=== PATIENT | male | born 1940 | race Caucasian/White ===

== ENCOUNTER 2016-11-20 20:24 | Emergency (ER) | payer MEDICARE, BC ==
[2016-11-20] MEDS ORDERED: ONDANSETRON HCL/PF 2 MG/ML VIAL IV ONE (21:14)
[2016-11-20] MEDS ORDERED: MORPHINE SULFATE 2 MG/ML DISP.SYRIN IV ONE ×2 (21:14→22:20)
--- NOTE | 2016-11-20 21:26 | ERNOTE ---
Abdominal HPI - Narrative Date of Service: 11/20/16 - General Chief Complaint: Abdominal Pain Time Seen by Provider: 11/20/16 20:58 Source: patient, family, RN notes reviewed Exam Limitations: no limitations - Immun/Allergies/Home Medications Immunizatons: IMMUNIZATION HX Immunizations Up to Date Yes History of Influenza Vaccine Yes Hx Pneumococcal Vaccination Yes Allergies/Adverse Reactions: Allergies No Known Allergies Allergy (Unverified 11/20/16 21:35) Home Medications: HOME MEDICATIONS Acetaminophen 325 mg PO Q4H PRN 11/20/16 [Last Taken Unknown] Aspirin 325 mg PO DAILY 11/20/16 [Last Taken Unknown] Atorvastatin Calcium 40 mg PO DAILY 11/20/16 [Last Taken Unknown] Brinzolamide/Brimonidine Tart [Simbrinza 1%-0.2% Eye Drops] 1 drop OP DAILY [Last Taken Unknown] Losartan Potassium [Cozaar] 50 mg PO DAILY 11/20/16 [Last Taken Unknown] Metoprolol Tartrate [Lopressor] 1.5 tab PO BID 11/20/16 [Last Taken Unknown] Nitroglycerin 0.4 mg SL Q5MIN PRN 11/20/16 [Last Taken Unknown] Omeprazole Magnesium [Prilosec Otc] 20 mg PO DAILY 11/20/16 [Last Taken Unknown] - Pain Score Pain Score #1 Pain Score: 8 Abdominal Pain Onset Location: epigastric Pain Radiation: back - History of Present Illness Narrative: 75 y/o male brought to the ED by his for epigastric pain that began at 1600. He denies any nausea, vomiting, constipation or diarrhea. He does report feeling bloated. He describes the pain as burning. Date (Duration): 11/20/16 Time (Timing): 16:00 Timing: constant, getting worse Quality: severe, burning Activities at Onset: none Associated Symptoms: Present: back pain, loss of appetite. Absent: headache, chest pain, neck pain, diaphoresis, fatigue, fever/chills, heartburn, nausea, vomiting, shortness of breath Prior Abdominal Problems: Present: none Prior Treatment: Absent: recently seen Review of Systems - Review of Systems Constitutional: Absent: recent illness, fever, chills EYE: Present: no symptoms reported ENT: Present: no symptoms reported Respiratory: Absent: cough, orthopnea Cardiology: Absent: palpitations, syncope, edema Gastrointestinal/Abdominal: Present: See HPI Genitourinary: Present: no symptoms reported Musculoskeletal: Present: back pain. Absent: neck pain, joint pain Skin: Absent: rash, lesions, lumps Neurological: Absent: headache, dizziness/light-headedness, weakness Endocrine: Present: no symptoms reported Hematologic/Lymphatic: Absent: easy bruising, easy bleeding Psych: Absent: anxiety - Patient's Past Medical History Patient History - Medical: Diabetes Type 2, GERD Patient History - Cardiac/Respiratory: CHF, Hypertension, Hyperlipidemia, CPAP/ BiPAP Home Use, Sleep Apnea Patient History - Cancer: No Hx of Cancer Patient History - Surgical Procedures: Cardiac stent Patient History - Other: None - Social History Living Situations: home Psych History: No pertinent hx Smoking Status: Never smoker Alcohol Use: none Drug Use: none - Immunizations Immunizations Up to Date: Yes Hx Pneumococcal Vaccination: Yes History of Influenza Vaccine: Yes Physical Exam - Physical Exam General Appearance: Present: wd/wn, alert, mild distress, anxious Neck: Present: normal inspection, nontender, supple Respiratory: Present: no respiratory distress, normal breath sounds, no accessory muscle use, chest nontender, lungs clear Cardiovascular/Chest: Present: regular rate, rhythm, no murmur, normal peripheral pulses Gastrointestinal/Abdominal: Present: normal bowel sounds, tenderness - epigastric, distended Back Exam: Present: normal inspection, no vertebral tenderness Extremity Exam: Present: normal inspection, normal range of motion, no edema Neurological Exam: Present: alert, oriented, normal mood/affect, no motor/ sensory deficits Skin Exam: Present: cool/dry, pallor ED Progress - Results and Orders Patient's Lab Results:: I have reviewed the patient's lab results. - Vital Signs Patient's Vital Signs:: I have reviewed the patient's vital signs. Vital Signs: Vital Signs 11/20/16 20:32 Temperature 36.0 C L Pulse Rate 90 Respiratory 18 Rate Blood Pressure 151/102 O2 Sat by Pulse 96 Oximetry - EKG EKG: NSR EKG read: Reviewed by me - Progress/Reassessment Chief Complaint: Abdominal Pain Progress Note-Subjective: 11/20/16 22:23 Some improvement in pain after Morphine 2mg IV, second dose ordered. Awaiting CT results. - Transfer of Care Physician Sign Out: Liseth Mendoza Receiving Physician: Brodale,Steven Pending Results: CT/MRI results Expected Disposition: Admit Departure - Departure Clinical Impression: Epigastric abdominal pain
[2016-11-20] MEDS ORDERED: MORPHINE SULFATE 2 MG/ML DISP.SYRIN ONE ×2 (21:27→22:25)
[2016-11-20] MEDS ORDERED: ONDANSETRON HCL/PF 2 MG/ML VIAL ONE (21:27)
[2016-11-20 21:45] LABS: Hematocrit 48.1 % (42.0-52.0); Hemoglobin 15.9 gm/dL (13.5-18.0); Mean Cell Volume 89.7 fl (78-100); Mean Corpuscular Hemoglobin 29.7 pg (27-31); Mean Corpuscular Hgb Conc 33.1 g/dl (32-36); Mean Platelet Volume 8.4 fl (6.0-9.5); Neutrophil # 7.4 K/mm3 (1.3-6.0); Neutrophil % 86.7 % (42-75.0); Platelet Count 161 K/mm3 (150-450); Red Blood Count 5.36 M/mm3 (4.7-6.0); Red Cell Distribution Width 13.2 % (11.5-14.0); White Blood Count 8.5 K/mm3 (4.0-10.5)
--- OUTSIDE RECORDS SUMMARY | 2016-11-20 21:55 | XMS REPORT | Continuity of Care Document ---
:1940 Author Organization [facility] ([facility]) Address [place] [address] Phone [phone] Care Team Providers Name Role Phone Betsy Ludwig Primary Care Provider [phone] Source Comments This disclosure is being made pursuant to the Care Everywhere program, applicable federal and state laws, and may not contain all informaitonavailable regarding this patient.[facility] ([facility]) Active Allergies and Adverse Reactions No Known Allergies Current Medications Prescription Sig. Disp. Refills Start End Date Status Date aspirin 325 mg EC take 1 Tab by Active tablet mouth daily. omeprazole take 1 Cap by Active (PRILOSEC) 20 mg mouth daily. capsule SUPPLY blood For testing 3 1 Each 0 Active glucose meter times daily. 4 Indications: TYPE 2 DIABETES MELLITUS SIMBRINZA 1-0.2 % Active ophthalmic 5 suspension acetaminophen 325 Take 325 mg by Active mg tablet mouth every 4 hours as needed SUPPLY blood For testing 3 100 Strip Active glucose test times daily. [address] 1 tablet 25 tablet Active (NITROSTAT) 0.4 mg (0.4 mg total) 6 SL tablet under the tongue every 5 minutes as needed for Chest pain. metoPROLol Take 1.5 tablets 280 tablet Active tartrate 50 mg (75 mg total) by 6 tablet mouth 2 times daily. losartan 50 mg Take 1 tablet (50 90 tablet Active tablet mg total) by mouth 6 daily. atorvastatin 40 mg Take 1 tablet (40 90 tablet Active tablet mg total) by mouth 6 daily. SUPPLY insulin Use with insulin 2 100 Syringe Active syringe w/ needle times per day E 6 U-100 (BD INSULIN 11.65 SYRINGE ULTRA-FINE) 1 mL 31 g x 5/16" SUPPLY lancets Use to test blood 100 Each 11 Active (STERILANCE TL) 30 glucose 3 x daily 7 gauge may fill with brand and size of choice. insulin Inject 80 units 150 mL 3 Active nph-regular subcutaneously 2 7 (NovoLIN 70/30) times daily. 100 unit/mL Insulin dependent. injection vial Diagnosis code E11.9 insulin 80 units twice 10 mL 0 10/25/19 Discontinued nph-regular daily. 6 17 (HumuLIN 70/30) 100 unit/mL injection vial insulin Inject 80 Units 200 mL 2 10/25/19 Discontinued nph-regular subcutaneously 2 6 17 (HumuLIN 70/30) times daily. 100 unit/mL injection vial insulin Inject 80 Units 200 mL 2 10/28/19 Discontinued nph-regular subcutaneously 2 7 17 (HumuLIN 70/30) times daily. 100 unit/mL injection vial insulin Inject 80 Units 150 mL 3 11/05/19 Discontinued nph-regular subcutaneously 2 7 17 (HumuLIN 70/30) times daily. 100 unit/mL injection vial Active Problems Problem Noted Date Left knee pain 04/07/2015 Osteoarthritis of both knees 02/02/2015 Overview: Left is worse than the right Last Assessment & Plan: He saw Dr. Kenna Dickens in sports medicine who recommended conservative management. I will contact him to discuss options. The knee is clearly bothering him to a fairly significant degree, and is p reventing him from being as active as he has been in the past. 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 He uses it regularly Microalbuminuria 02/05/2013 Allergic rhinitis 03/02/2009 Reactive airway disease 03/02/2009 Hyperlipidemia 03/24/2008 Last Assessment & Plan: - Continue atorvastatin 40 mg Intermittent exotropia, monocular 03/24/2008 Coronary Artery Disease 10/29/2007 Overview: Status post 3 x 12 mm Taxus stent to mid RCA and status post 2.5 x 16 mm Taxus stent to mid LAD, September 2005 with subsequent 2.5 x 16 mm Taxus stent to OM-1, October 2005. Indication was positive GXT by EKG. Negative exercise perfusion study: 11/2005 Negative exercise stress echocardiogram: 10/2007 Last Assessment & Plan: - No symptoms concerning for angina since his last visit - Continue current regimen Hypertension 06/01/2007 Last Assessment & Plan: - Well controlled on last several visits, continue current regimen. Diabetes mellitus, type 2 05/05/2003 Last Assessment & Plan: Exercise certainly would be helpful to improve his glucose management. We did talk about the impact of hyperglycemia on his coronary disease Glaucoma Resolved Problems Problem Noted Date Resolved Date Shortness of breath 02/16/2008 03/17/2012 Cough 12/16/2005 01/26/2009 Most Recent Encounters Date Type Specialty Providers Description 11/04/2016 Refill Diabetes Services Syd Santizo MD Dx: Type 2 diabetes mellitus without complication (Primary Dx) 10/28/2016 Refill Diabetes Services Syd Santizo MD Dx: Uncontrolled type 2 diabetes mellitus with hyperosmolar coma, with long-term current use of insulin (Primary Dx) 10/25/2016 Refill Diabetes Services Syd Santizo MD Dx: Uncontrolled type 2 diabetes mellitus with hyperosmolar coma, with long-term current use of insulin (Primary Dx) 10/01/2016 Refill Diabetes Services Syd Santizo MD Dx: Type 2 diabetes mellitus without complication (Primary Dx) Immunizations Name Dates Previously Given Next Due Influenza, high dose 06/14/2016,08/17/2014 Influenza, quadrivalent PF 08/03/2015,07/16/2013 Influenza, unspecified 06/16/2012,06/12/2011,08/01/2010,09/15/2009 ,06/28/2004 Novel Inluenza H1N1, unspecified 09/15/2009 Td, adsorbed adult PF 10/25/2010 Social History Tobacco Use Types Packs/Day Years Used Date Never Smoker Smokeless Tobacco: Never Used Tobacco Cessation:Counseling Given: Yes Comments: Alcohol Use Drinks/Week oz/Week Comments No Last Filed Vital Signs Vital Sign Reading Time Taken Blood Pressure 142/80 06/14/2016 1:16 PM CDT Pulse 77 06/14/2016 1:16 PM CDT Temperature 36 C (96.8 F) 04/25/2014 9:26 AM CDT Respiratory Rate 18 04/25/2014 9:26 AM CDT Height 1.727 m (5' 8") 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 Weight 102.1 kg (225 lb 1.4 oz) 06/14/2016 1:16 PM CDT Body Mass Index 34.23 06/14/2016 1:16 PM CDT Oxygen Saturation 98% 12/31/2013 9:48 AM CDT Plan of Care Date Type Specialty Providers Description 12/16/2016 Appointment Diabetes Services Syd Santizo MD Chief Comp: Patient [address] [place] [address] Visit [phone] (Fax) 02/20/2017 Appointment Heart and Vascular Theodora Haas MD Chief Comp: Patient [address] [place] [address] Visit [phone] (Fax) Health Maintenance Due Date Last Done Comments Hepatitis B Vaccine (1 of 3 - 1940 Primary Series) Tdap Vaccine 12/01/1950 Colonoscopy 12/01/1989 Zoster Vaccine 1999 AAA Screening 12/01/2004 Pneumococcal Vaccine (1 of 2 12/01/2004 - PCV13) DIABETIC: Foot Exam 02/12/2011 DIABETIC: Microalbumin 02/05/2014 02/05/2013, Additional history exists 12/12/2011, 10/25/2010 DIABETIC: Retinal Eye Exam 01/25/2016 01/24/2015 (Previously completed) DIABETIC: Cholesterol 02/25/2016 02/24/2015, Additional history exists 12/31/2013, 01/22/2013 Diabetic: Hdl 02/25/2016 02/24/2015, Additional history exists 12/31/2013, 01/22/2013 Diabetic: Ldl 02/25/2016 02/24/2015, Additional history exists 12/31/2013, 12/31/2013 DIABETIC: Triglycerides 02/25/2016 02/24/2015, Additional history exists 12/31/2013, 01/22/2013 DIABETIC: Hemoglobin A1C 12/13/2016 06/14/2016, Additional history exists 08/16/2015, 02/24/2015 [facility] Annual Coding Diabetes 09/01/2017 11/04/2016, Additional history exists without Complication 10/28/2016, 10/25/2016 Td Vaccine 10/25/2020 10/25/2010 Influenza Vaccine: Seasonal Completed 06/14/2016, Additional history exists 08/03/2015, 08/17/2014 Results from Last 3 Months Not on file
[2016-11-20 22:03] LABS: ALT 35 U/L (19-67); AST 15 U/L (0-48); Albumin * 3.8 gm/dl (3.4-5.0); Alkaline Phosphatase * 136 U/L (50-170); Amylase * 25 U/L (25-115); Anion Gap 17.5 mmol/L (6.8-13.8); BUN/Creatinine Ratio 18.6 (9.0-21.6); Bilirubin, Total 2.1 mg/dL (0.0-1.1); Blood Urea Nitrogen 21 mg/dL (6-23); Ca. Corrected For Albumin 9.1 mg/dL (8.4-10.2); Calcium * 9.3 mg/dL (7.9-10.9); Carbon Dioxide 24.8 mmol/L (24-32.6); Chloride 103 mmol/L (97-106); Glucose * 320 mg/dL (70-110); Lipase 54 U/L (73-393); Potassium 4.3 mmol/L (3.4-4.6); Sodium 141 mmol/L (132-142); Total Protein 7.6 gm/dL (6.2-8.2); Troponin I Less than 0.017 ng/ml (0.00-0.10)
[2016-11-21] MEDS ORDERED: MORPHINE SULFATE 2 MG/ML DISP.SYRIN IV ONE (01:45)
[2016-11-21] MEDS ORDERED: traMADol HCL 50 MG TABLET PO ONE (01:45)
[2016-11-21] MEDS ORDERED: MORPHINE SULFATE 2 MG/ML DISP.SYRIN ONE (01:54)
[2016-11-21] MEDS ORDERED: traMADol HCL 50 MG TABLET ONE (01:55)
[2016-11-21 02:23] VITALS: BP 160/86
== END 2016-11-21 02:21 | disposition home or self-care (01) ==
LOC: ER 20:24
DX: R10.13 Epigastric pain (principal); E11.9 Type 2 diabetes mellitus without complications; K21.9 Gastro-esophageal reflux disease without esophagitis; I10 Essential (primary) hypertension; I50.9 Heart failure, unspecified; E78.5 Hyperlipidemia, unspecified

== ENCOUNTER 2016-11-26 03:13 | Inpatient (IN) | payer MEDICARE, BC ==
[2016-11-26] MEDS ORDERED: NORMAL SALINE 1,000 ML IV ONE ×4 (03:32→12:54)
--- OUTSIDE RECORDS SUMMARY | 2016-11-26 03:48 | XMS REPORT | Continuity of Care Document ---
:1940 Author Organization [facility] ([facility]) [place] [address] Phone [phone] Care Team Providers Name Role Phone Betsy Ludwig Primary Care Provider [phone] Source Comments This disclosure is being made pursuant to the Care Everywhere program, applicable federal and state laws, and may not contain all informaitonavailable regarding this patient.[facility] ([facility]) Active Allergies and Adverse Reactions No Known [...] dependent. 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 Weight 102.1 kg (225 lb 1.4 oz) 06/14/2016 1:16 PM CDT Body Mass Index 34.23 06/14/2016 1:16 PM CDT Oxygen Saturation 98% 12/31/2013 9:48 AM CDT Plan of Care Date Type Specialty Providers Description 12/16/2016 Appointment Diabetes Services Syd Santizo MD Chief Comp: Patient [address] [place] [address] Visit [phone] (Fax) 02/20/2017 Appointment Heart and Vascular Theodora Haas MD Chief Comp: Patient [address] [place] [address] Visit [phone] (Fax) Health Maintenance Due Date Last Done [...] 12/13/2016 06/14/2016, Additional history exists 08/16/2015, 02/24/2015 [facility] Annual Coding Diabetes 09/01/2017 11/04/2016, Additional history exists without Complication 10/28/2016, 10/25/2016 Td Vaccine 10/25/2020 10/25/2010 Influenza Vaccine: Seasonal Completed 06/14/2016, Additional history exists 08/03/2015, 08/17/2014 Results from Last 3 Months Not on file
--- NOTE | 2016-11-26 03:52 | ERNOTE ---
Abdominal HPI - General Chief Complaint: Altered Mental Status Time Seen by Provider: 11/26/16 03:16 Source: family Exam Limitations: clinical condition - Immun/Allergies/Home Medications Immunizatons: IMMUNIZATION HX Immunizations Up to Date Yes History of Influenza Vaccine More Information Required Hx Pneumococcal Vaccination More Information Required Allergies/Adverse Reactions: Allergies No Known Allergies Allergy (Unverified 11/20/16 21:35) Home Medications: HOME MEDICATIONS Acetaminophen 325 mg PO Q4H PRN 11/20/16 [Last Taken Unknown] Aspirin 325 mg PO DAILY 11/20/16 [Last Taken Unknown] Atorvastatin Calcium 40 mg PO DAILY 11/20/16 [Last Taken Unknown] Brinzolamide/Brimonidine Tart [Simbrinza 1%-0.2% Eye Drops] 1 drop OP DAILY [Last Taken Unknown] Losartan Potassium [Cozaar] 50 mg PO DAILY 11/20/16 [Last Taken Unknown] Metoprolol Tartrate [Lopressor] 1.5 tab PO BID 11/20/16 [Last Taken Unknown] Nitroglycerin 0.4 mg SL Q5MIN PRN 11/20/16 [Last Taken Unknown] Omeprazole Magnesium [Prilosec Otc] 20 mg PO DAILY 11/20/16 [Last Taken Unknown] traMADol HCL [Ultram] 50 - 100 mg PO QID PRN #10 tab 11/21/16 [Last Taken Unknown] - History of Present Illness Narrative: Pt was seen here last week and diagnosed with cholelithiasis with cystic duct obstruction. He refused emergent referral to general surgery but wanted to get outpatient consult on his own time. He did consult with Dr. Hopkins and laperoscopic cholecystectomy was scheduled for 12/20. He saw his PCP Dr. Betsy Ludwig in the office today. 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 has noticed that since being seen in this ED last week he has not improved. Tonight he became increasingly confused and his and daughter became concerned and call EMS. Timing: getting worse Quality: severe Activities at Onset: none Modifying Factors - (Worsens): Present: analgesics - family believes pain medications have been making him worse Associated Symptoms: Present: nausea, vomiting, loss of appetite Prior Abdominal Problems: Present: similar symptoms - for the past month Prior Treatment: Present: recently seen - at the walk in clinic and Strep, [place] and influena tests were negative Review of Systems - Review of Systems Constitutional: Present: See HPI, recent illness, fever, fatigue, malaise, decreased activity level EYE: Present: no symptoms reported ENT: Present: no symptoms reported Respiratory: Present: no symptoms reported Cardiology: Present: no symptoms reported Gastrointestinal/Abdominal: Present: See HPI, abdominal pain Genitourinary: Present: no symptoms reported Musculoskeletal: Present: no symptoms reported Skin: Present: no symptoms reported Neurological: Present: no symptoms reported Endocrine: Present: no symptoms reported Hematologic/Lymphatic: Present: no symptoms reported Psych: Present: no symptoms reported - Patient's Past Medical History Patient History - Medical: Diabetes Type 2, GERD, Other - cholelithiasis Patient History - Cardiac/Respiratory: CHF, Hypertension, Hyperlipidemia, CPAP/ BiPAP Home Use, Sleep Apnea Patient History - Cancer: No Hx of Cancer Patient History - Surgical Procedures: Cardiac stent Patient History - Other: None - Social History Living Situations: home Abuse History: No History of abuse Psych History: No pertinent hx Smoking Status: Never smoker Alcohol Use: none Drug Use: none - Immunizations Immunizations Up to Date: Yes Hx Pneumococcal Vaccination: More Information Required to Determine History of Influenza Vaccine: More Information Required to Determine Physical Exam - Physical Exam General Appearance: Present: wd/wn, lethargic Eye Exam: Normal inspection: bilateral Ears, Nose, Throat: Present: normal ENT inspection Neck: Present: normal inspection, nontender Respiratory: Present: no respiratory distress, normal breath sounds, no accessory muscle use, lungs clear Cardiovascular/Chest: Present: regular rate, rhythm, no murmur, normal peripheral pulses Gastrointestinal/Abdominal: Present: normal bowel sounds, tenderness - RUQ- although pt states that it doesn't hurt, he grunts and guards when palpating his RUQ Back Exam: Present: no CVA tenderness Extremity Exam: Present: normal inspection, normal range of motion Neurological Exam: Present: oriented, dial refinisher II-XII nml as tested Skin Exam: Present: normal color, warm/dry ED Progress - Results and Orders Patient's Lab Results:: I have reviewed the patient's lab results. Results and Orders: Laboratory Tests 11/26/16 11/26/16 11/26/16 04:05 04:05 04:05 WBC 11.2 H Hgb 11.5 L Hct 35.2 L Plt Count 207 Neutrophils % 79.6 H Sodium 134 Potassium 3.2 L D Chloride 99 Carbon Dioxide 24.7 Anion Gap 13.5 BUN 22 Creatinine 1.06 Est GFR (Non-Af Amer) 72 Random Glucose 112 H Lactic Acid, Venous 0.6 Calcium 8.0 Calcium Adj for Albumin 9.1 Total Bilirubin 1.9 H AST 27 ALT 27 Alkaline Phosphatase 156 Total Protein 6.6 Albumin 2.2 L Amylase 13 L Lipase 59 L Urine Color Urine Appearance Urine pH Ur Specific [place] Urine Protein Urine Glucose (UA) Urine Ketones Urine Blood Urine Nitrate Urine Bilirubin Prot Sulfosalicylic Acd Urine Urobilinogen Ur Leukocyte Esterase Urine RBC Urine WBC Ur Epithelial Cells Urine Bacteria Hyaline Casts Urine Culture Comments 11/26/16 04:33 WBC Hgb Hct Plt Count Neutrophils % Sodium Potassium Chloride Carbon Dioxide Anion Gap BUN Creatinine Est GFR (Non-Af Amer) Random Glucose Lactic Acid, Venous Calcium Calcium Adj for Albumin Total Bilirubin AST ALT Alkaline Phosphatase Total Protein Albumin Amylase Lipase Urine Color Dark yellow Urine Appearance Clear Urine pH 5.5 Ur Specific [place] 1.020 Urine Protein 30 H Urine Glucose (UA) Negative Urine Ketones 15 Urine Blood 25 H Urine Nitrate Negative Urine Bilirubin Negative Prot Sulfosalicylic Acd Negative Urine Urobilinogen Normal Ur Leukocyte Esterase Negative Urine RBC 10-25 H Urine WBC None seen Ur Epithelial Cells None seen Urine Bacteria Trace Hyaline Casts 0-5 H Urine Culture Comments No culture indicated - Vital Signs Patient's Vital Signs:: I have reviewed the patient's vital signs. Vital Signs: Vital Signs 11/26/16 11/26/16 11/26/16 03:15 03:28 03:31 Temperature 39.4 C H 39.4 C H Pulse Rate 111 H 111 H 111 H Respiratory 24 H 26 H Rate Blood Pressure 148/77 138/68 O2 Sat by Pulse 94 92 Oximetry - Progress/Reassessment Chief Complaint: Altered Mental Status Progress:: Improved Progress Note-Subjective: 11/26/16 05:[address] Marrufo- General Surgery. He agrees the patient needs admission. He will see the patient in the ER prior to admission to further assess how soon the patient should go to surgery 11/26/16 06:37 Dr. Marrufo in ED to see pt. Reviewed case and CT from previous visit with Dr. Marrufo. 11/26/16 07:[address] Kyaw Calderon and he agrees to admit and consult Dr. Marrufo. Departure - Departure Clinical Impression: Cholecystitis Disposition: [facility] Condition: Fair
[2016-11-26 04:26] LABS: Albumin * 2.2 gm/dl (3.4-5.0); Anion Gap 13.5 mmol/L (6.8-13.8); BUN/Creatinine Ratio 20.8 (9.0-21.6); Bilirubin, Total 1.9 mg/dL (0.0-1.1); Ca. Corrected For Albumin 9.1 mg/dL (8.4-10.2); Carbon Dioxide 24.7 mmol/L (24-32.6); Potassium 3.2 mmol/L (3.4-4.6); Total Protein 6.6 gm/dL (6.2-8.2)
[2016-11-26 04:39] LABS: Urine Bilirubin Negative (NEGATIVE); Urine Blood 25 /ul (NEGATIVE); Urine Ketone 15 mg/dL (NEGATIVE); Urine Nitrite Negative (NEGATIVE); Urine Protein 30 mg/dL (NEGATIVE); Urine Urobilinogen Normal (NORMAL); Urine pH 5.5 pH (5.0-7.0)
[2016-11-26 05:09] LABS: Hematocrit 35.2 % (42.0-52.0); Hemoglobin 11.5 gm/dL (13.5-18.0); Mean Cell Volume 91.2 fl (78-100); Mean Corpuscular Hemoglobin 29.8 pg (27-31); Mean Corpuscular Hgb Conc 32.7 g/dl (32-36); Mean Platelet Volume 8.2 fl (6.0-9.5); Neutrophil # 8.9 K/mm3 (1.3-6.0); Neutrophil % 79.6 % (42-75.0); Platelet Count 207 K/mm3 (150-450); Red Blood Count 3.86 M/mm3 (4.7-6.0); Red Cell Distribution Width 12.8 % (11.5-14.0); White Blood Count 11.2 K/mm3 (4.0-10.5)
[2016-11-26 05:29] LABS: Urine Appearance Clear; Urine Bacteria TRACE; Urine Color Dark Yellow; Urine Hyaline Cast 0-5 /LPF; Urine WBC None Seen /hpf (0-5)
--- OUTSIDE RECORDS SUMMARY | 2016-11-26 07:38 | XMS REPORT | Continuity of Care Document ---
:1940 Author Organization [facility] ([facility]) [place] [address] Phone [phone] Care Team Providers Name Role Phone Betsy Ludwig Primary Care Provider [phone] Source Comments This disclosure is being made pursuant to the Care Everywhere program, applicable federal and state laws, and may not contain all informaitonavailable regarding this patient.[facility] ([facility]) Active Allergies and Adverse Reactions No [...] insulin (Primary Dx) 10/01/2016 Refill Diabetes Services ySd Santizo MD Dx: Type 2 diabetes mellitus [...] 1.727 m (5' 8") 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.1 kg (225 lb 1.4 oz) 06/14/2016 1:16 PM CDT Body Mass Index 34.23 06/14/2016 1:16 PM CDT Oxygen Saturation 98% 12/31/2013 9:48 AM CDT Plan of Care Date Type Specialty Providers Description 12/16/2016 Appointment Diabetes Services Syd Santizo MD Chief Comp: Patient [address] [place] [address] Visit [phone] (Fax) 02/20/2017 Appointment Heart and Vascular Theodora Haas MD Chief Comp: Patient [address] [place] [address] Visit [phone] (Fax) Health Maintenance Due Date Last Done [...] 12/13/2016 06/14/2016, Additional history exists 08/16/2015, 02/24/2015 [facility] Annual Coding Diabetes 09/01/2017 11/04/2016, Additional history exists without Complication 10/28/2016, 10/25/2016 Td Vaccine 10/25/2020 10/25/2010 Influenza Vaccine: Seasonal Completed 06/14/2016, Additional history exists 08/03/2015, 08/17/2014 Results from Last 3 Months Not on file
[2016-11-26] MEDS ORDERED: NITROGLYCERIN 0.4 MG/TAB BTL SL PRN (08:15)
[2016-11-26] MEDS ORDERED: ACETAMINOPHEN 325 MG TABLET PO PRN (08:15)
[2016-11-26] MEDS ORDERED: BRIMONIDINE TART OP SCH (09:00)
[2016-11-26] MEDS: METOPROLOL TARTRATE 50 MG, METOPROLOL TARTRATE 25 MG PO SCH ×4 (09:00→16:07)
[2016-11-26] MEDS ORDERED: BRINZOLAMIDE OP SCH (09:00)
[2016-11-26] MEDS: POTASSIUM CHLORIDE 20 MEQ TABLET.SA PO SCH ×2 (09:00→16:07)
[2016-11-26] MEDS ORDERED: METOPROLOL TARTRATE 50 MG TABLET PO SCH (09:00)
[2016-11-26] MEDS ORDERED: [UNRECOGNIZED DRUG - OTHER] OP SCH (09:00)
[2016-11-26] MEDS ORDERED: MORPHINE SULFATE 4 MG/ML SYRG IV ONE (09:34)
[2016-11-26 11:03] LABS: Bilirubin Direct 1.5 mg/dL (0.0-0.3)
[2016-11-26] MEDS: CEFOXITIN SODIUM 2 GM in DEXTROSE 5 % IN WATER 100 ML IV SCH ×6 (11:12→21:54)
[2016-11-26 11:41] LABS: CRP 20.9 mg/dL (0.0-0.9)
[2016-11-26] MEDS: BRIMONIDINE TARTRATE 50 DROP BTL OP SCH ×2 (13:06→13:13)
[2016-11-26] MEDS: BRINZOLAMIDE 100 DROP BTL OP SCH (13:13)
[2016-11-26] MEDS: ACETAMINOPHEN 325 MG TABLET PO SCH ×2 (13:14→19:20)
[2016-11-26] MEDS: PANTOPRAZOLE SODIUM 20 MG TABLET.DR PO SCH (13:14)
--- NOTE | 2016-11-26 13:14 | HP ---
Chief Complaint - Chief Complaint Date of Service: 11/26/16 Time of Service: 13:01 Chief Complaint: Sick History of Present Illness: Has been having trouble with upper abdominal discomfort off and on for the last 2-3 months. He became more ill 11/20/16, and was evaluated in the [facility] ER. He was diagnosed with cholelithiasis and cystic duct obstruction. He refused emergent referral to general surgery then, but wanted to get outpatient consult on his own time. He did in fact consult with Dr. Hopkins, one of our [facility] surgeons, and laperoscopic cholecystectomy was scheduled for 12/20/16. He saw his PCP, Dr. Betsy Ludwig, in the office 11/25/16. 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 His has noticed that since being seen in the [facility] ER last week he has not improved. The night of admission, he became increasingly confused and his and daughter became concerned and called EMS, who brought him to the [facility] ER. HIDA scan has just been completed this morning, and the summation of his evaluation is that of cholelithiasis and cholecystitis. He is febrile, has had cultures obtained, is on IV Mefoxin, and has been seen twice by the surgeon passenger relations representative this week, Dr. Bernabe. Also noted is a 4 gm drop in Hgb level since 11/20/16 of unknown cause. - Patient's Past Medical History Patient History - Medical: Diabetes Type 2, GERD, Other - cholelithiasis Patient History - Cardiac/Respiratory: CHF, Hypertension, Hyperlipidemia, CPAP/ BiPAP Home Use, Sleep Apnea Patient History - Cancer: No Hx of Cancer Patient History - Surgical Procedures: Cardiac stent Patient History - Other: None - Social History Living Situations: home Abuse History: No History of abuse Psych History: No pertinent hx Smoking Status: Never smoker Have you smoked in the past 12 months: No Do you dip or chew tobacco: No Patient requests Smoking Cessation Consult: No Initiate information on Smoking Cessation: No Alcohol Use: none Drug Use: none - Immunizations Immunizations Up to Date: Yes Hx Pneumococcal Vaccination: More Information Required to Determine History of Influenza Vaccine: More Information Required to Determine Review Of Systems (GEN) - Review of Systems Generalized/Overall Review: Present: Weakness, Chills, Fever, Malaise EENTM: Present: No Symptoms Reported Respiratory: Present: No Symptoms Reported Cardiac: Present: No Symptoms Reported Abdominal: Present: Nausea, Abdominal Pain Genitourinary: Present: No Symptoms Reported Musculoskeletal: Present: No Symptoms Reported Neurological: Present: Other - confused since more ill Skin: Present: Other - yellow color reported by Endocrine: Present: Increased Thirst Misc: All systems neg except as marked Immunizations: IMMUNIZATION HX Immunizations Up to Date Yes History of Influenza Vaccine More Information Required Hx Pneumococcal Vaccination More Information Required Allergies/Adverse Reactions: Allergies Allergy/AdvReac Type Severity Reaction Status Date / Time No Known Allergies Allergy Verified 11/26/16 12:56 Home Medications: HOME MEDICATIONS Acetaminophen 325 mg PO Q4H PRN 11/20/16 [Last Taken Unknown] Aspirin 325 mg PO DAILY 11/20/16 [Last Taken Unknown] Atorvastatin Calcium 40 mg PO DAILY 11/20/16 [Last Taken Unknown] Brinzolamide/Brimonidine Tart [Simbrinza 1%-0.2% Eye Drops] 1 drop OP DAILY [Last Taken Unknown] Losartan Potassium [Cozaar] 50 mg PO DAILY 11/20/16 [Last Taken Unknown] Metoprolol Tartrate [Lopressor] 1.5 tab PO BID 11/20/16 [Last Taken Unknown] Nitroglycerin 0.4 mg SL Q5MIN PRN 11/20/16 [Last Taken Unknown] Omeprazole Magnesium [Prilosec Otc] 20 mg PO DAILY 11/20/16 [Last Taken Unknown] traMADol HCL [Ultram] 50 - 100 mg PO QID PRN #10 tab 11/21/16 [Last Taken Unknown] Exam - Exam Vital Signs: Vital Signs - Last Taken Selected Entries 11/26/16 11/26/16 11/26/16 03:28 03:31 04:16 Temperature 39.4 C H Temperature Source Pulse Rate 111 H 111 H 102 H Respiratory 26 H 24 H Rate Respiratory Depth Respiratory Effort Respiratory Pattern Blood Pressure 138/68 O2 Sat by Pulse 92 Oximetry Oxygen Delivery Nasal Cannula Method Oxygen Flow 2 Rate 11/26/16 11/26/16 05:00 10:43 Temperature 37.6 C H 39.1 C H Temperature Oral Source Pulse Rate 100 133 H Respiratory 21 H 18 Rate Respiratory Normal Depth Respiratory Non-Labored Effort Respiratory Normal Pattern Blood Pressure 151/73 167/86 O2 Sat by Pulse 94 Oximetry Oxygen Delivery Nasal Cannula Method Oxygen Flow 2 Rate Constitutional: Present: Cooperative, Well developed, Somnolent - says somnolent since the morphine given for the HIDA scan this morning, Obese ENT Exam: Present: normal ENT inspection, dry mucous membranes Eye Exam: bilateral eye: normal inspection, PERRL, EOMI Neck: Present: normal inspection. Absent: lymphadenopathy (R), lymphadenopathy (L) Back Exam: Present: normal inspection, no CVA tenderness, no vertebral tenderness Respiratory: Present: lungs clear, no respiratory distress Cardiovascular/Chest: Present: regular rate, rhythm, no murmur, tachycardia Abdomen: Present: Normal bowel sounds, soft, nondistended, no rebound tenderness , no hepatospenomegaly, no masses, tender - RUQ Extremity: Present: normal range of motion, no pedal edema Skin Exam: Present: normal color, warm/dry, no cyanosis Neurologic: Present: other Appearance: Present: appropriate appearance, neat Eye contact: Present: cooperative, decreased rate of speech Thoughts: Present: incoherent Diagnostic Studies: Abnormal Lab Results 11/26/16 11/26/16 Range/Units 10:25 10:25 ESR 90 H (0-10) mm/hr Total Bilirubin 3.0 H (0.0-1.1) mg/dL Direct Bilirubin 1.5 H (0.0-0.3) mg/dL C-Reactive Prot, Quant 20.9 H (0.0-0.9) mg/dL Laboratory Results WBC 11.2 K/mm3 (4.0-10.5) H 11/26/16 04:05 RBC 3.86 M/mm3 (4.7-6.0) L 11/26/16 04:05 Hgb 11.5 gm/dL (13.5-18.0) L 11/26/16 04:05 Hct 35.2 % (42.0-52.0) L 11/26/16 04:05 MCV 91.2 fl (78-100) 11/26/16 04:05 MCH 29.8 pg (27-31) 11/26/16 04:05 MCHC 32.7 g/dl (32-36) 11/26/16 04:05 RDW 12.8 % (11.5-14.0) 11/26/16 04:05 Plt Count 207 K/mm3 (150-450) 11/26/16 04:05 MPV 8.2 fl (6.0-9.5) 11/26/16 04:05 Immature Gran % (Auto) 3.00 % (0.001-0.429) H 11/26/16 04:05 Immature Gran # (Auto) 0.33 K/mm3 (0.000-0.0310) H 11/26/16 04:05 Neutrophils % 79.6 % (42-75.0) H 11/26/16 04:05 Lymphocytes % 6.8 % (20-51) L 11/26/16 04:05 Monocytes % 10.0 % (0.0-9) H 11/26/16 04:05 Eosinophils % 0.1 % (0.0-3.0) 11/26/16 04:05 Basophils % 0.5 % (0.0-1.0) 11/26/16 04:05 Nucleated RBC % 0.0 k/mm3 (0-1) 11/26/16 04:05 Neutrophils # 8.9 K/mm3 (1.3-6.0) H 11/26/16 04:05 Lymphocytes # 0.8 k/mm3 (1.5-3.5) L 11/26/16 04:05 Monocytes # 1.1 k/mm3 (0.0-1.0) H 11/26/16 04:05 Eosinophils # 0.0 k/mm3 (0.0-0.7) 11/26/16 04:05 Absolute Basophils 0.1 k/mm3 (0.0-0.1) 11/26/16 04:05 ESR 90 mm/hr (0-10) H 11/26/16 10:25 Sodium 134 mmol/L (132-142) 11/26/16 04:05 Plasma Sodium 134 mmol/L (130-142) 11/26/16 04:05 Potassium 3.2 mmol/L (3.4-4.6) L D 11/26/16 04:05 Chloride 99 mmol/L (97-106) 11/26/16 04:05 Carbon Dioxide 24.7 mmol/L (24-32.6) 11/26/16 04:05 Anion Gap 13.5 mmol/L (6.8-13.8) 11/26/16 04:05 BUN 22 mg/dL (6-23) 11/26/16 04:05 Creatinine 1.06 mg/dL (0.4-1.4) 11/26/16 04:05 Est GFR (Non-Af Amer) 72 mL/min (60-130) 11/26/16 04:05 BUN/Creatinine Ratio 20.8 (9.0-21.6) 11/26/16 04:05 Random Glucose 112 mg/dL (70-110) H 11/26/16 04:05 Lactic Acid, Venous 0.6 mmol/L (0.4-2.0) 11/26/16 04:05 Calcium 8.0 mg/dL (7.9-10.9) 11/26/16 04:05 Calcium Adj for Albumin 9.1 mg/dL (8.4-10.2) 11/26/16 04:05 Total Bilirubin 3.0 mg/dL (0.0-1.1) H 11/26/16 10:25 Direct Bilirubin 1.5 mg/dL (0.0-0.3) H 11/26/16 10:25 AST 27 U/L (0-48) 11/26/16 04:05 ALT 27 U/L (19-67) 11/26/16 04:05 Alkaline Phosphatase 156 U/L (50-170) 11/26/16 04:05 C-Reactive Prot, Quant 20.9 mg/dL (0.0-0.9) H 11/26/16 10:25 Total Protein 6.6 gm/dL (6.2-8.2) 11/26/16 04:05 Albumin 2.2 gm/dl (3.4-5.0) L 11/26/16 04:05 Amylase 13 U/L (25-115) L 11/26/16 04:05 Lipase 59 U/L (73-393) L 11/26/16 04:05 Urine Color Dark yellow 11/26/16 04:33 Urine Appearance Clear 11/26/16 04:33 Urine pH 5.5 pH (5.0-7.0) 11/26/16 04:33 Ur Specific [place] 1.020 SP.GR. (1.005-1.030) 11/26/16 04:33 Urine Protein 30 mg/dL (NEGATIVE) H 11/26/16 04:33 Urine Glucose (UA) Negative mg/dL (NEGATIVE) 11/26/16 04:33 Urine Ketones 15 mg/dL (NEGATIVE) 11/26/16 04:33 Urine Blood 25 /ul (NEGATIVE) H 11/26/16 04:33 Urine Nitrate Negative (NEGATIVE) 11/26/16 04:33 Urine Bilirubin Negative mg/dl (NEGATIVE) 11/26/16 04:33 Prot Sulfosalicylic Acd Negative mg/dL (0) 11/26/16 04:33 Urine Urobilinogen Normal EU/dl (NORMAL) 11/26/16 04:33 Ur Leukocyte Esterase Negative /ul (NEGATIVE) 11/26/16 04:33 Urine RBC 10-25 /hpf (0-5) H 11/26/16 04:33 Urine WBC None seen /hpf (0-5) 11/26/16 04:33 Ur Epithelial Cells None seen /hpf (0-5) 11/26/16 04:33 Urine Bacteria Trace (NONE) 11/26/16 04:33 Hyaline Casts 0-5 /LPF (NONE) H 11/26/16 04:33 Urine Culture Comments No culture indicated 11/26/16 04:33 Influenza Type A Ag Negative (NEGATIVE) 11/26/16 10:58 Influenza Type B Ag Negative (NEGATIVE) 11/26/16 10:58 Group A Strep Rapid Negative (NEGATIVE) 11/26/16 10:47 Assessment/Plan - Narrative Narrative: EKG. Fluids. Antibiotics. Plan for surgery. No contraindications. Risks are age, chf, cad and diabetes. Estimate hospital stay of three days, admit acute. - Assessment/Plan (1) CAD (coronary artery disease) Problem: Chronic (2) CHF (congestive heart failure) Problem: Chronic Qualifiers: Congestive heart failure type: unspecified congestive heart failure type Congestive heart failure chronicity: chronic Qualified Code(s): I50.9 - Heart failure, unspecified (3) Diabetes Problem: Chronic Qualifiers: Diabetes mellitus type: type 2 (4) Anemia Problem: Acute Qualifiers: Anemia type: unspecified type Qualified Code(s): D64.9 - Anemia, unspecified (5) Cholecystitis Problem: Acute (6) Cholelithiasis Problem: Chronic (7) BLOSSOM (obstructive sleep apnea) Problem: Chronic
[2016-11-26] MEDS: POTASSIUM CHLORIDE 20 MEQ in NORMAL SALINE 1,000 ML IV SCH ×2 (14:11→21:57)
[2016-11-26] MEDS: traMADol HCL 50 MG TABLET PO PRN (20:19)
[2016-11-26] MEDS: ROSUVASTATIN CALCIUM 10 MG TABLET PO SCH (20:19)
[2016-11-27] MEDS: ACETAMINOPHEN 325 MG TABLET PO SCH ×4 (00:49→19:35)
[2016-11-27] MEDS: CEFOXITIN SODIUM 2 GM in DEXTROSE 5 % IN WATER 100 ML IV SCH ×8 (00:50→19:36)
[2016-11-27] MEDS: POTASSIUM CHLORIDE 20 MEQ in NORMAL SALINE 1,000 ML IV SCH ×2 (04:39→15:28)
[2016-11-27] MEDS: traMADol HCL 50 MG TABLET PO PRN (06:44)
[2016-11-27] MEDS: PANTOPRAZOLE SODIUM 20 MG TABLET.DR PO SCH (06:45)
[2016-11-27 07:43] LABS: Hematocrit 40.2 % (42.0-52.0); Mean Cell Volume 89.5 fl (78-100); Mean Corpuscular Hgb Conc 32.3 g/dl (32-36); Mean Platelet Volume 8.7 fl (6.0-9.5); Platelet Count 142 K/mm3 (150-450); Red Blood Count 4.49 M/mm3 (4.7-6.0); Red Cell Distribution Width 13.1 % (11.5-14.0); White Blood Count 9.8 K/mm3 (4.0-10.5)
[2016-11-27] MEDS ORDERED: RINGERS SOLUTION,LACTATED 1,000 ML IV ONE ×2 (07:45→11:42)
[2016-11-27] MEDS ORDERED: POTASSIUM CHLORIDE IV ONE (07:45)
[2016-11-27] MEDS ORDERED: NORMAL SALINE IV ONE (07:45)
[2016-11-27 07:46] LABS: Total Cells Counted 100
[2016-11-27 08:05] LABS: Albumin * 1.8 gm/dl (3.4-5.0); Anion Gap 13.3 mmol/L (6.8-13.8); BUN/Creatinine Ratio 13.9 (9.0-21.6); Bilirubin, Total 3.2 mg/dL (0.0-1.1); Calcium * 7.6 mg/dL (7.9-10.9); Carbon Dioxide 23.3 mmol/L (24-32.6); Potassium 4.6 mmol/L (3.4-4.6); Total Protein 5.7 gm/dL (6.2-8.2)
[2016-11-27 08:13] LABS: Atypical (Reactive) Lymph 2 % (0-2); Band 6 % (0-2.0); Dohle Bodies 1+; Eosinophil 1 % (0-3); Immature Granulocyte 4 (0-1); Lymphocyte 3 % (20-51); Monocyte 3 % (0-9); Neutrophil 81 % (42-75); Neutrophil # 7.9 K/mm3 (1.3-6.0); Toxic Granulation 2+
[2016-11-27 08:14] LABS: Schistocytes 1+
[2016-11-27] MEDS ORDERED: ceFAZolin SODIUM 1 GM VIAL IM/IV ONE (08:15)
[2016-11-27 08:16] LABS: Platelet Estimate Decreased (NORMAL)
[2016-11-27] MEDS ORDERED: BUPIVACAINE HCL/EPINEPHRINE 50 ML VIAL IJ ONE ×2 (08:20)
[2016-11-27] MEDS ORDERED: MUPIROCIN 22 APPL TUBE TP ONE (08:32)
--- NOTE | 2016-11-27 10:07 | PN ---
Subjective - Date and Time Seen Date: 11/27/16 Time: 07:25 Subjective Narrative: The patient says he is no better than yesterday, but his says he has improved. He looks more comfortable to me. Plan is for surgery this morning. Is on Mefoxin at the present time. Liver enzymes now elevated, Hgb higher, wbc count lower, but now with bandemia. Selected Entries 11/26/16 11/26/16 11/26/16 05:00 10:43 13:21 Temperature 37.6 C H 39.1 C H 38.4 C H Pulse Rate 100 133 H 126 H Blood Pressure 11/26/16 11/26/16 11/26/16 13:24 20:00 23:36 Temperature 38.4 C H 37.0 C 36.5 C Pulse Rate 126 H Blood Pressure 11/26/16 11/27/16 11/27/16 23:55 02:38 07:09 Temperature 36.5 C 35.8 C L 35.8 C L Pulse Rate Blood Pressure 139/70 139/70 11/27/16 11/27/16 07:15 09:00 Temperature 36.4 C L 36.4 C L Pulse Rate Blood Pressure 119/69 119/69 Laboratory Tests 11/26/16 11/26/16 11/26/16 04:05 04:05 10:25 WBC 11.2 H Hgb 11.5 L Plt Count 207 Neutrophils % 79.6 H Neutrophils % (Manual) Band Neuts % (Manual) Monocytes % 10.0 H Monocytes % (Manual) Potassium 3.2 L D Carbon Dioxide 24.7 Random Glucose 112 H Calcium Total Bilirubin 1.9 H 3.0 H Direct Bilirubin 1.5 H AST 27 ALT 27 Alkaline Phosphatase 156 11/27/16 11/27/16 07:38 07:38 WBC 9.8 Hgb 13.0 L Plt Count 142 L Neutrophils % Neutrophils % (Manual) 81 H Band Neuts % (Manual) 6 H Monocytes % Monocytes % (Manual) 3 Potassium 4.6 D Carbon Dioxide 23.3 L Random Glucose 211 H D Calcium 7.6 L Total Bilirubin 3.2 H Direct Bilirubin AST 1332 H ALT 1149 H Alkaline Phosphatase 528 H Objective - Review of Systems Generalized/Overall Review: Reports: Weakness, Malaise EENTM: Reports: No Symptoms Reported Respiratory: Reports: No Symptoms Reported Cardiac: Reports: No Symptoms Reported Abdominal: Reports: Abdominal Pain Genitourinary Symptoms: Reports: No Symptoms Reported Musculoskeletal Complaints: Reports: No Symptoms Reported Neurological: Reports: No Symptoms Reported Skin: Reports: No Symptoms Reported Endocrine: Reports: No Symptoms Reported Misc: All systems neg except as marked - Vitals Vitals: Last Vital Signs Selected Entries 11/27/16 07:15 Temperature 36.4 C L Temperature Oral Source Pulse Rate 88 Respiratory 20 Rate Respiratory Normal Depth Blood Pressure 119/69 Blood Pressure Supine Position O2 Sat by Pulse 97 Oximetry Oxygen Delivery Nasal Cannula Method Oxygen Flow 2 Rate - Abnormal Lab Findings Abnormal Lab Findings: Abnormal Lab Results 11/27/16 11/27/16 Range/Units 07:38 07:38 RBC 4.49 L (4.7-6.0) M/mm3 Hgb 13.0 L (13.5-18.0) gm/dL Hct 40.2 L (42.0-52.0) % Plt Count 142 L (150-450) K/mm3 Neutrophils % (Manual) 81 H (42-75) % Band Neuts % (Manual) 6 H (0-2.0) % Lymphocytes % (Manual) 3 L (20-51) % Immature Granulocytes 4 H (0-1) Neutrophils # (Manual) 7.9 H (1.3-6.0) K/mm3 Lymphocytes # (Manual) 0.3 L (1.5-3.5) k/mm3 Platelet Estimate Decreased L (NORMAL) Carbon Dioxide 23.3 L (24-32.6) mmol/L Random Glucose 211 H D (70-110) mg/dL Calcium 7.6 L (7.9-10.9) mg/dL Total Bilirubin 3.2 H (0.0-1.1) mg/dL AST 1332 H (0-48) U/L ALT 1149 H (19-67) U/L Alkaline Phosphatase 528 H (50-170) U/L Total Protein 5.7 L (6.2-8.2) gm/dL Albumin 1.8 L (3.4-5.0) gm/dl - Exam Constitutional: Present: Alert, Oriented x3, Cooperative, Well developed, Well nourished, No distress, Obese ENT Exam: Present: normal ENT inspection, hearing grossly normal Neck: Present: full range of motion, normal inspection Respiratory: Present: lungs clear, no respiratory distress Cardiovascular/Chest: Present: regular rate, rhythm, no murmur Abdomen: Present: Normal bowel sounds, soft, nondistended, no rebound tenderness , no hepatospenomegaly, no masses, obese, tender - RUQ Extremity: Present: normal range of motion, non-tender, normal inspection, no pedal edema Skin Exam: Present: normal color, warm/dry, no cyanosis Neurologic: Present: alert Appearance: Present: appropriate appearance, neat Eye contact: Present: cooperative, good eye contact Assessment/Plan Plan Narrative: For surgery today. Continue IV antibiotics. - Problems/Diagnosis (1) CAD (coronary artery disease) Problem: Chronic (2) CHF (congestive heart failure) Problem: Chronic Qualifiers: Congestive heart failure type: unspecified congestive heart failure type Congestive heart failure chronicity: chronic Qualified Code(s): I50.9 - Heart failure, unspecified (3) Diabetes Problem: Chronic Qualifiers: Diabetes mellitus type: type 2 (4) Anemia Problem: Acute Qualifiers: Anemia type: unspecified type Qualified Code(s): D64.9 - Anemia, unspecified (5) Cholecystitis Problem: Acute (6) Cholelithiasis Problem: Chronic (7) BLOSSOM (obstructive sleep apnea) Problem: Chronic
[2016-11-27] MEDS ORDERED: oxyCODONE HCL/ACETAMINOPHEN 1 TAB TABLET PO ONE (14:30)
[2016-11-27] MEDS ORDERED: PANTOPRAZOLE SODIUM 40 MG in NORMAL SALINE 100 ML IV ONE (14:30)
[2016-11-27] MEDS: BRIMONIDINE TARTRATE 50 DROP BTL OP SCH (14:49)
[2016-11-27] MEDS: BRINZOLAMIDE 100 DROP BTL OP SCH (14:49)
[2016-11-27] MEDS: METOPROLOL TARTRATE 50 MG, METOPROLOL TARTRATE 25 MG PO SCH ×4 (14:51→17:02)
[2016-11-27] MEDS: RINGERS SOLUTION,LACTATED 1,000 ML IV PRN (14:56)
[2016-11-27] MEDS: POTASSIUM CHLORIDE 20 MEQ TABLET.SA PO SCH (15:28)
[2016-11-27] MEDS: ENOXAPARIN SODIUM 40 MG/0.4 ML SYRG SC SCH (17:05)
[2016-11-27] MEDS ORDERED: INSULIN GLARGINE,HUM.REC.ANLOG 100 UNITS/ML VIAL SC SCH (19:15)
--- NOTE | 2016-11-27 20:43 | OR ---
Operative Report - Dictated Report Narrative: DATE OF OPERATION: 11/27/2016 PREOPERATIVE DIAGNOSIS: Acute cholecystitis with cholelithiasis POSTOPERATIVE DIAGNOSIS: Severe acute cholecystitis and cholelithiasis OPERATION: Laparoscopic cholecystectomy SURGEON: PB Bernabe MD ANESTHESIA : Gen. zuleyma Zapata CRNA INDICATIONS FOR PROCEDURE: The patient is a 75-year-old male who initially presented to the emergency room on 11/20/2016 with a 2-3 month history of upper abdominal pain. He was found to have ultrasound and CT scan evidence of cholelithiasis and cholecystitis. He declined referral for surgical evaluation at that time but was subsequently seen the next day by Dr. Hopkins in the clinic and scheduled for outpatient surgery on 12/20/2016. Yesterday the patient became more confused and apparently briefly unresponsive. He was brought back to the emergency room by ambulance and admitted. FINDINGS: Extreme gallbladder inflammation with necrosis, single large stone. Very difficult operation requiring several hours of dissection prior to ensuring that the operation could be completed laparoscopically. NARRATIVE OF PROCEDURE: The patient was identified preoperatively. Chlorhexidine wipes were used to prep the abdomen. Prior to the administration of anesthetic a multidisciplinary timeout observed. With the patient in the supine position, SCDs were placed, 2 g of intravenous Ancef administered (the patient is currently on scheduled IV Mefoxin as well), and general endotracheal anesthetic administered. The patient's abdomen was prepped with Betadine solution and a generous operating field outlined with 4 sterile towels. The remainder the patient was covered with a sterile disposable drape. An infraumbilical skin incision was made. Dissection was carried along the umbilical stalk until the fascia of the linea alba was encountered. This was incised. The peritoneum was then elevated and incised to allow entry into the abdomen under direct vision. A Hussan cannula was placed, and the abdomen insufflated with CO2. The laparoscopic camera was introduced and the abdomen briefly explored. There was a large amount of omental fat with gastric distention and only small portions of the right and left lobe of the liver were visible initially. Next under direct vision 3 additional working ports were inserted through separate skin incisions, one in the subxiphoid, one in the right upper quadrant, and one in the right flank. The patient was placed in reverse Trendelenburg position and the omentum gradually retracted inferiorly to expose the expected location of the gallbladder apex. A markedly inflamed gallbladder was encountered, encased with omental adhesions. A plane was gradually developed between the omentum and the gallbladder by combination of blunt and hydrostatic dissection. Gradually the body of the gallbladder was freed sufficiently to indicate that the gallbladder could potentially be removed laparoscopically. The gallbladder was then decompressed with a needle and the puncture site grasped. The apex of the gallbladder was retracted cephalad and additional dissection performed to liberate more omentum to expose the expected location of the cystic duct. The distal gallbladder was opened and the wall used for traction and the interior used to track the gallbladder distally. A structure compatible with the cystic duct was located and found to contain clear bile. An attempt was made to insert a cholangiocatheter however it would not thread distally and attempt at cholangiogram was abandoned. The cystic duct was eventually dissected free for a sufficient distance for confident identification. It was doubly clipped and divided. The cystic artery was identified doubly clipped and divided. The gallbladder was then removed from the liver bed by retrograde electrocautery dissection. There was intense chronic inflammation and radha necrosis making the dissection very difficult and time consuming. Prior to severing the last attachments of the gallbladder the liver bed was inspected and found to be hemostatic with no evidence of bile leak. The previously placed clips were seen to be intact. The right upper quadrant was suctioned clean. The last attachments of the gallbladder were divided. It was placed in an Endobag and parked in the right upper quadrant. The liver bed was then again irrigated and suctioned clean and small fragments of necrotic gallbladder were additionally placed in the Endobag. The specimen bag was then passed through the umbilical port and the gallbladder removed by morcellation. The smaller working ports were then withdrawn under direct vision to ensure entry site hemostasis. Endobag was removed in conjunction with the Hussan cannula. The pneumoperitoneum was allowed to escape, and after receiving a correct sponge needle and instrument count attention was turned to closing the abdomen. The fascia and peritoneum at the umbilicus were approximated with interrupted sutures of #1 Vicryl. The wound was treated with free Betadine and irrigated with saline. Skin incisions were approximated with interrupted vertical mattress sutures of 4-0 nylon. The operative sites were washed and dried. Dressings of Bactroban ointment and large Band-Aids were applied to the small port sites. The umbilical incision was dressed with Bactroban ointment, 2 x 2, large Band-Aid and Medipore tape. The operative procedure was terminated at this point. The patient tolerated the anesthetic and procedure well without complication. There was no measurable blood loss. The gallbladder was submitted to pathology. 0.5% Marcaine with epinephrine was used for local anesthetic infiltration. The patient was transferred to the recovery room awake , extubated, and in stable condition. Reviewed and electronically signed
[2016-11-27] MEDS: INSULIN LISPRO 100 UNITS/ML VIAL SC SCH (21:18)
[2016-11-27] MEDS: ROSUVASTATIN CALCIUM 10 MG TABLET PO SCH (21:20)
[2016-11-28] MEDS: ACETAMINOPHEN 325 MG TABLET PO SCH ×4 (00:14→19:06)
[2016-11-28] MEDS: RINGERS SOLUTION,LACTATED 1,000 ML IV PRN ×3 (00:14→19:05)
[2016-11-28] MEDS: CEFOXITIN SODIUM 2 GM in DEXTROSE 5 % IN WATER 100 ML IV SCH ×8 (02:11→19:06)
[2016-11-28 06:29] LABS: Hematocrit 36.3 % (42.0-52.0); Hemoglobin 11.6 gm/dL (13.5-18.0); Mean Corpuscular Hemoglobin 29.1 pg (27-31); Mean Platelet Volume 9.1 fl (6.0-9.5); Platelet Count 167 K/mm3 (150-450); Red Blood Count 3.99 M/mm3 (4.7-6.0); Red Cell Distribution Width 13.5 % (11.5-14.0); White Blood Count 10.1 K/mm3 (4.0-10.5)
[2016-11-28 06:34] LABS: Total Cells Counted 100
[2016-11-28 06:49] LABS: Albumin * 1.5 gm/dl (3.4-5.0); Anion Gap 13.2 mmol/L (6.8-13.8); BUN/Creatinine Ratio 16.2 (9.0-21.6); Bilirubin, Total 1.8 mg/dL (0.0-1.1); Ca. Corrected For Albumin 8.9 mg/dL (8.4-10.2); Calcium * 7.2 mg/dL (7.9-10.9); Carbon Dioxide 23.2 mmol/L (24-32.6); Potassium 4.4 mmol/L (3.4-4.6); Total Protein 5.2 gm/dL (6.2-8.2)
[2016-11-28 07:14] LABS: Band 12 % (0-2.0); Lymphocyte 3 % (20-51); Monocyte 1 % (0-9); Neutrophil 84 % (42-75); Neutrophil # 8.5 K/mm3 (1.3-6.0); Platelet Estimate Normal (NORMAL); RBC Morphology Normal (NORMAL)
[2016-11-28] MEDS: INSULIN LISPRO 100 UNITS/ML VIAL SC SCH ×4 (07:30→20:30)
[2016-11-28] MEDS: INSULIN GLARGINE,HUM.REC.ANLOG 100 UNITS/ML VIAL SC SCH ×2 (07:35→20:29)
[2016-11-28] MEDS: BRINZOLAMIDE 100 DROP BTL OP SCH (08:30)
[2016-11-28] MEDS: BRIMONIDINE TARTRATE 50 DROP BTL OP SCH (08:30)
[2016-11-28] MEDS: METOPROLOL TARTRATE 50 MG, METOPROLOL TARTRATE 25 MG PO SCH ×4 (08:31→17:40)
[2016-11-28 09:12] LABS: INR 1.29 INR (0.90-1.10); Prothrombin Time (Patient) 13.4 Seconds (9.4-11.4)
--- NOTE | 2016-11-28 11:06 | PN ---
Dictated Progress Note - Date and Time Seen: Date: 11/28/16 Time: 09:00 - Progress Note Narrative: Vital Signs - Last Taken Temp 36.2 C L 11/28/16 10:36 Pulse 78 11/28/16 10:36 Resp 16 11/28/16 10:36 BP 107/59 11/28/16 10:36 Pulse Ox 94 11/28/16 10:36 Abnormal/Pending Laboratory Last 24 HRS 11/28/16 11/28/16 11/28/16 06:25 06:25 06:25 RBC 3.99 L Hgb 11.6 L Hct 36.3 L Neutrophils % (Manual) 84 H Band Neuts % (Manual) 12 H Lymphocytes % (Manual) 3 L Neutrophils # (Manual) 8.5 H Lymphocytes # (Manual) 0.3 L PT INR (Anticoag Therapy) Carbon Dioxide 23.2 L BUN 28 H D Creatinine 1.73 H D Est GFR (Non-Af Amer) 41 L D Random Glucose 335 H D Calcium 7.2 L Total Bilirubin 1.8 H AST 1549 H ALT 1139 H Alkaline Phosphatase 399 H C-Reactive Prot, Quant 17.0 H Total Protein 5.2 L Albumin 1.5 L 11/28/16 06:00 RBC Hgb Hct Neutrophils % (Manual) Band Neuts % (Manual) Lymphocytes % (Manual) Neutrophils # (Manual) Lymphocytes # (Manual) PT 13.4 H INR (Anticoag Therapy) 1.29 H Carbon Dioxide BUN Creatinine Est GFR (Non-Af Amer) Random Glucose Calcium Total Bilirubin AST ALT Alkaline Phosphatase C-Reactive Prot, Quant Total Protein Albumin POD 1 Laparoscopic Cholecystectomy for severe acute cholecystitis with cholelithiasis VS normal, mental status is markedly improved today. Incisional discomfort and does not like the SCD's. Tolerated liquids and is up in chair. No BM yet but feels like he might. LFT's remain up but Ammonia normal and INR minimally up so these elevations are likely due to necrotic GB/surgery and not decreased liver function. Also CRP down. Will encourage OOB, diet could be advanced as he tolerates. Continue antibiotic and recheck lab in AM. ?home tomorrow if tolerating diet and labs improving.
--- NOTE | 2016-11-28 12:19 | PN ---
Subjective - Date and Time Seen Date: 11/28/16 Time: 07:40 Subjective Narrative: The patient says he is better than yesterday, and also his says he has improved. He looks much more comfortable to me. Laparoscopic cholecystectomy was yesterday. Is still on Mefoxin at the present time. Liver enzymes still elevated, bilirubin is lower, Bandemia persists. No nausea. Selected Entries Laboratory Tests Objective - Review of Systems Generalized/Overall Review: Reports: Malaise EENTM: Reports: No Symptoms Reported Respiratory: Reports: No Symptoms Reported Cardiac: Reports: No Symptoms Reported Abdominal: Reports: Abdominal Pain Genitourinary Symptoms: Reports: No Symptoms Reported Musculoskeletal Complaints: Reports: No Symptoms Reported Neurological: Reports: No Symptoms Reported Skin: Reports: No Symptoms Reported Endocrine: Reports: No Symptoms Reported Misc: All systems neg except as marked - Vitals Vitals: Last Vital Signs Selected Entries 11/27/16 11/28/16 23:17 02:30 Pulse Rate 87 91 Respiratory 18 18 Rate Blood Pressure 123/70 120/64 O2 Sat by Pulse 97 97 Oximetry Oxygen Delivery Room Air Room Air Method - Abnormal Lab Findings Abnormal Lab Findings: Abnormal Lab Results 11/28/16 11/28/16 11/28/16 Range/Units 06:00 06:25 06:25 RBC 3.99 L (4.7-6.0) M/mm3 Hgb 11.6 L (13.5-18.0) gm/dL Hct 36.3 L (42.0-52.0) % Neutrophils % (Manual) 84 H (42-75) % Band Neuts % (Manual) 12 H (0-2.0) % Lymphocytes % (Manual) 3 L (20-51) % Neutrophils # (Manual) 8.5 H (1.3-6.0) K/mm3 Lymphocytes # (Manual) 0.3 L (1.5-3.5) k/mm3 PT 13.4 H (9.4-11.4) Seconds INR (Anticoag Therapy) 1.29 H (0.90-1.10) INR Carbon Dioxide 23.2 L (24-32.6) mmol/L BUN 28 H D (6-23) mg/dL Creatinine 1.73 H D (0.4-1.4) mg/dL Est GFR (Non-Af Amer) 41 L D (60-130) mL/min Random Glucose 335 H D (70-110) mg/dL Calcium 7.2 L (7.9-10.9) mg/dL Total Bilirubin 1.8 H (0.0-1.1) mg/dL AST 1549 H (0-48) U/L ALT 1139 H (19-67) U/L Alkaline Phosphatase 399 H (50-170) U/L C-Reactive Prot, Quant (0.0-0.9) mg/dL Total Protein 5.2 L (6.2-8.2) gm/dL Albumin 1.5 L (3.4-5.0) gm/dl 11/28/16 Range/Units 06:25 RBC (4.7-6.0) M/mm3 Hgb (13.5-18.0) gm/dL Hct (42.0-52.0) % Neutrophils % (Manual) (42-75) % Band Neuts % (Manual) (0-2.0) % Lymphocytes % (Manual) (20-51) % Neutrophils # (Manual) (1.3-6.0) K/mm3 Lymphocytes # (Manual) (1.5-3.5) k/mm3 PT (9.4-11.4) Seconds INR (Anticoag Therapy) (0.90-1.10) INR Carbon Dioxide (24-32.6) mmol/L BUN (6-23) mg/dL Creatinine (0.4-1.4) mg/dL Est GFR (Non-Af Amer) (60-130) mL/min Random Glucose (70-110) mg/dL Calcium (7.9-10.9) mg/dL Total Bilirubin (0.0-1.1) mg/dL AST (0-48) U/L ALT (19-67) U/L Alkaline Phosphatase (50-170) U/L C-Reactive Prot, Quant 17.0 H (0.0-0.9) mg/dL Total Protein (6.2-8.2) gm/dL Albumin (3.4-5.0) gm/dl - Exam Constitutional: Present: Alert, Oriented x3, Cooperative, Well developed, No distress, Obese ENT Exam: Present: normal ENT inspection Neck: Present: normal inspection Respiratory: Present: lungs clear, no respiratory distress Cardiovascular/Chest: Present: regular rate, rhythm, no murmur Abdomen: Present: Normal bowel sounds, soft, nondistended, no rebound tenderness , no hepatospenomegaly, no masses, tender Extremity: Present: normal inspection, no pedal edema Skin Exam: Present: normal color, warm/dry, no cyanosis Neurologic: Present: alert, oriented x 3 Appearance: Present: appropriate appearance, neat Eye contact: Present: cooperative, good eye contact, normal speech Assessment/Plan Plan Narrative: Doing well post op day one. Follow post op protocol. - Problems/Diagnosis (1) CAD (coronary artery disease) Problem: Chronic (2) CHF (congestive heart failure) Problem: Chronic Qualifiers: Congestive heart failure type: unspecified congestive heart failure type Congestive heart failure chronicity: chronic Qualified Code(s): I50.9 - Heart failure, unspecified (3) Diabetes Problem: Chronic Qualifiers: Diabetes mellitus type: type 2 (4) Anemia Problem: Acute Qualifiers: Anemia type: unspecified type Qualified Code(s): D64.9 - Anemia, unspecified (5) Cholecystitis Problem: Acute (6) Cholelithiasis Problem: Chronic (7) BLOSSOM (obstructive sleep apnea) Problem: Chronic
[2016-11-28] MEDS: ENOXAPARIN SODIUM 40 MG/0.4 ML SYRG SC SCH (17:40)
[2016-11-28] MEDS: ROSUVASTATIN CALCIUM 10 MG TABLET PO SCH (20:27)
[2016-11-29] MEDS: ACETAMINOPHEN 325 MG TABLET PO SCH ×4 (01:37→18:50)
[2016-11-29] MEDS: CEFOXITIN SODIUM 2 GM in DEXTROSE 5 % IN WATER 100 ML IV SCH ×8 (01:39→18:50)
[2016-11-29] MEDS: RINGERS SOLUTION,LACTATED 1,000 ML IV PRN ×3 (05:08→22:37)
[2016-11-29 06:31] LABS: Hematocrit 36.9 % (42.0-52.0); Hemoglobin 12.1 gm/dL (13.5-18.0); Mean Cell Volume 90.4 fl (78-100); Mean Corpuscular Hemoglobin 29.7 pg (27-31); Mean Corpuscular Hgb Conc 32.8 g/dl (32-36); Mean Platelet Volume 8.9 fl (6.0-9.5); Platelet Count 181 K/mm3 (150-450); Red Blood Count 4.08 M/mm3 (4.7-6.0); Red Cell Distribution Width 13.4 % (11.5-14.0); White Blood Count 10.8 K/mm3 (4.0-10.5)
[2016-11-29 06:36] LABS: Total Cells Counted 100
[2016-11-29 06:48] LABS: Albumin * 1.6 gm/dl (3.4-5.0); Anion Gap 10.8 mmol/L (6.8-13.8); BUN/Creatinine Ratio 13.2 (9.0-21.6); Bilirubin Direct 0.6 mg/dL (0.0-0.3); Bilirubin, Total 1.2 mg/dL (0.0-1.1); Bilirubin,Indirect 0.6 mg/dL (0.1-0.7); Calcium * 7.6 mg/dL (7.9-10.9); Carbon Dioxide 26.1 mmol/L (24-32.6); Estimated Creat Clear 44.7; Potassium 3.9 mmol/L (3.4-4.6); Total Protein 5.5 gm/dL (6.2-8.2)
[2016-11-29 06:52] LABS: Atypical (Reactive) Lymph 1 % (0-2); Band 1 % (0-2.0); Immature Granulocyte 2 (0-1); Lymphocyte 9 % (20-51); Monocyte 4 % (0-9); Neutrophil 83 % (42-75); Platelet Estimate Normal (NORMAL); RBC Morphology Normal (NORMAL)
[2016-11-29] MEDS: INSULIN LISPRO 100 UNITS/ML VIAL SC SCH ×4 (06:58→20:09)
[2016-11-29] MEDS: INSULIN GLARGINE,HUM.REC.ANLOG 100 UNITS/ML VIAL SC SCH ×2 (06:59→19:02)
[2016-11-29] MEDS: PANTOPRAZOLE SODIUM 20 MG TABLET.DR PO SCH (07:05)
[2016-11-29] MEDS: BRINZOLAMIDE 100 DROP BTL OP SCH (08:58)
[2016-11-29] MEDS: BRIMONIDINE TARTRATE 50 DROP BTL OP SCH (08:58)
[2016-11-29] MEDS ORDERED: BISACODYL 5 MG TABLET.DR PO ONE (09:04)
[2016-11-29] MEDS ORDERED: BISACODYL 10 MG SUPP.RECT RC ONE (09:05)
[2016-11-29] MEDS: METOPROLOL TARTRATE 50 MG, METOPROLOL TARTRATE 25 MG PO SCH ×4 (09:19→17:37)
[2016-11-29] MEDS: ENOXAPARIN SODIUM 40 MG/0.4 ML SYRG SC SCH (17:37)
--- NOTE | 2016-11-29 18:01 | PN ---
Subjective - Date and Time Seen Date: 11/29/16 Time: 07:15 Subjective Narrative: Much better than yesterday. Clear liquids going well. Has been ambulating some. Abdomen sore. Labs improving. Objective - Review of Systems Generalized/Overall Review: Reports: No Symptoms Reported EENTM: Reports: No Symptoms Reported Respiratory: Reports: No Symptoms Reported Cardiac: Reports: No Symptoms Reported Abdominal: Reports: Abdominal Pain Genitourinary Symptoms: Reports: No Symptoms Reported Musculoskeletal Complaints: Reports: No Symptoms Reported Neurological: Reports: No Symptoms Reported Skin: Reports: No Symptoms Reported Endocrine: Reports: No Symptoms Reported Misc: All systems neg except as marked - Vitals Vitals: Last Vital Signs Selected Entries 11/29/16 06:40 Temperature 36.8 C Temperature Oral Source Pulse Rate 85 Respiratory 18 Rate Respiratory Normal Depth Blood Pressure 151/82 Blood Pressure Supine Position O2 Sat by Pulse 94 Oximetry Oxygen Delivery Room Air Method Oxygen Flow 0 Rate - Abnormal Lab Findings Abnormal Lab Findings: Abnormal Lab Results 11/29/16 11/29/16 Range/Units 06:26 06:26 WBC 10.8 H (4.0-10.5) K/mm3 RBC 4.08 L (4.7-6.0) M/mm3 Hgb 12.1 L (13.5-18.0) gm/dL Hct 36.9 L (42.0-52.0) % Neutrophils % (Manual) 83 H (42-75) % Lymphocytes % (Manual) 9 L (20-51) % Immature Granulocytes 2 H (0-1) Neutrophils # (Manual) 9.0 H (1.3-6.0) K/mm3 Lymphocytes # (Manual) 1.0 L (1.5-3.5) k/mm3 Est GFR (Non-Af Amer) 54 L D (60-130) mL/min Random Glucose 179 H D (70-110) mg/dL Calcium 7.6 L (7.9-10.9) mg/dL Total Bilirubin 1.2 H (0.0-1.1) mg/dL Direct Bilirubin 0.6 H (0.0-0.3) mg/dL AST 930 H (0-48) U/L ALT 911 H (19-67) U/L Alkaline Phosphatase 365 H (50-170) U/L Total Protein 5.5 L (6.2-8.2) gm/dL Albumin 1.6 L (3.4-5.0) gm/dl - Exam Constitutional: Present: Alert, Oriented x3, Cooperative, Well developed, No distress, Obese ENT Exam: Present: normal ENT inspection, hearing grossly normal Neck: Present: normal inspection Respiratory: Present: lungs clear, no respiratory distress Cardiovascular/Chest: Present: regular rate, rhythm, no murmur Abdomen: Present: Normal bowel sounds, soft, nondistended, no rebound tenderness , no hepatospenomegaly, no masses, tender - modest tenderness.........better than yesterday. Extremity: Present: normal inspection, no pedal edema Skin Exam: Present: normal color, warm/dry, no cyanosis Neurologic: Present: alert, oriented x 3 Appearance: Present: appropriate appearance, appropriate insight, neat Eye contact: Present: cooperative, good eye contact Thoughts: Present: normal thought pattern Assessment/Plan Plan Narrative: Ambulation. Diet advance when indicated by surgeon. Follow labs. Continue IV antibiotics for now. - Problems/Diagnosis (1) CAD (coronary artery disease) Problem: Chronic (2) CHF (congestive heart failure) Problem: Chronic Qualifiers: Congestive heart failure type: unspecified congestive heart failure type Congestive heart failure chronicity: chronic Qualified Code(s): I50.9 - Heart failure, unspecified (3) Diabetes Problem: Chronic Qualifiers: Diabetes mellitus type: type 2 (4) Anemia Problem: Acute Qualifiers: Anemia type: unspecified type Qualified Code(s): D64.9 - Anemia, unspecified (5) Cholecystitis Problem: Acute (6) Cholelithiasis Problem: Chronic (7) BLOSSOM (obstructive sleep apnea) Problem: Chronic
[2016-11-29] MEDS: ROSUVASTATIN CALCIUM 10 MG TABLET PO SCH (20:08)
[2016-11-29] MEDS: traMADol HCL 50 MG TABLET PO PRN (20:18)
[2016-11-30] MEDS: ACETAMINOPHEN 325 MG TABLET PO SCH ×4 (01:16→19:04)
[2016-11-30] MEDS: CEFOXITIN SODIUM 2 GM in DEXTROSE 5 % IN WATER 100 ML IV SCH ×8 (01:22→20:14)
[2016-11-30 04:47] LABS: Hematocrit 36.1 % (42.0-52.0); Hemoglobin 11.4 gm/dL (13.5-18.0); Mean Cell Volume 91.4 fl (78-100); Mean Corpuscular Hemoglobin 28.9 pg (27-31); Mean Corpuscular Hgb Conc 31.6 g/dl (32-36); Mean Platelet Volume 8.6 fl (6.0-9.5); Neutrophil % 80.7 % (42-75.0); Platelet Count 188 K/mm3 (150-450); Red Blood Count 3.95 M/mm3 (4.7-6.0); Red Cell Distribution Width 13.3 % (11.5-14.0); White Blood Count 9.9 K/mm3 (4.0-10.5)
[2016-11-30 05:06] LABS: Albumin * 1.5 gm/dl (3.4-5.0); Anion Gap 11.1 mmol/L (6.8-13.8); BUN/Creatinine Ratio 10.3 (9.0-21.6); Bilirubin Direct 0.1 mg/dL (0.0-0.3); Bilirubin, Total 0.9 mg/dL (0.0-1.1); Bilirubin,Indirect 0.8 mg/dL (0.1-0.7); Calcium * 7.6 mg/dL (7.9-10.9); Carbon Dioxide 27.1 mmol/L (24-32.6); Estimated Creat Clear 44.7; Potassium 4.2 mmol/L (3.4-4.6); Total Protein 5.4 gm/dL (6.2-8.2)
[2016-11-30] MEDS: PANTOPRAZOLE SODIUM 20 MG TABLET.DR PO SCH (06:41)
[2016-11-30] MEDS: traMADol HCL 50 MG TABLET PO PRN (06:41)
[2016-11-30] MEDS: INSULIN LISPRO 100 UNITS/ML VIAL SC SCH ×4 (07:22→20:14)
[2016-11-30] MEDS: INSULIN GLARGINE,HUM.REC.ANLOG 100 UNITS/ML VIAL SC SCH ×2 (07:23→20:05)
[2016-11-30] MEDS: BRINZOLAMIDE 100 DROP BTL OP SCH (10:28)
[2016-11-30] MEDS: METOPROLOL TARTRATE 50 MG, METOPROLOL TARTRATE 25 MG PO SCH ×4 (10:28→17:16)
[2016-11-30] MEDS: BRIMONIDINE TARTRATE 50 DROP BTL OP SCH (10:29)
--- NOTE | 2016-11-30 12:08 | PN ---
Subjective - Date and Time Seen Date: 11/30/16 Time: 06:30 Subjective Narrative: Much better than yesterday. Regular diet going well. Has been ambulating more. Abdomen sore. Labs improving. Moved his bowels. Objective - Review of Systems Generalized/Overall Review: Reports: Weakness, Malaise EENTM: Reports: No Symptoms Reported Respiratory: Reports: No Symptoms Reported Cardiac: Reports: No Symptoms Reported Abdominal: Reports: Abdominal Pain Genitourinary Symptoms: Reports: No Symptoms Reported Musculoskeletal Complaints: Reports: No Symptoms Reported Neurological: Reports: No Symptoms Reported Skin: Reports: No Symptoms Reported Endocrine: Reports: No Symptoms Reported Misc: All systems neg except as marked - Vitals Vitals: Last Vital Signs Selected Entries 11/30/16 03:39 Temperature 36.7 C Temperature Temporal Artery Source Scan Pulse Rate 79 Pulse Rhythm Regular Respiratory 18 Rate Respiratory Normal Depth Respiratory Normal Effort Blood Pressure 139/77 Blood Pressure Supine Position O2 Sat by Pulse 95 Oximetry Oxygen Delivery Room Air Method - Abnormal Lab Findings Abnormal Lab Findings: Abnormal Lab Results 11/30/16 11/30/16 Range/Units 04:43 04:43 RBC 3.95 L (4.7-6.0) M/mm3 Hgb 11.4 L (13.5-18.0) gm/dL Hct 36.1 L (42.0-52.0) % MCHC 31.6 L (32-36) g/dl Immature Gran % (Auto) 1.70 H (0.001-0.429) % Immature Gran # (Auto) 0.17 H (0.000-0.0310) K/mm3 Neutrophils % 80.7 H (42-75.0) % Lymphocytes % 10.6 L (20-51) % Neutrophils # 8.0 H (1.3-6.0) K/mm3 Lymphocytes # 1.1 L (1.5-3.5) k/mm3 Chloride 107 H (97-106) mmol/L Est GFR (Non-Af Amer) 54 L (60-130) mL/min Random Glucose 138 H (70-110) mg/dL Calcium 7.6 L (7.9-10.9) mg/dL Indirect Bilirubin 0.8 H (0.1-0.7) mg/dL AST 361 H (0-48) U/L ALT 627 H (19-67) U/L Alkaline Phosphatase 355 H (50-170) U/L Total Protein 5.4 L (6.2-8.2) gm/dL Albumin 1.5 L (3.4-5.0) gm/dl - Exam Constitutional: Present: Alert, Oriented x3, Cooperative, Well developed, Well nourished, No distress ENT Exam: Present: normal ENT inspection, hearing grossly normal Neck: Present: normal inspection Respiratory: Present: lungs clear, no respiratory distress Cardiovascular/Chest: Present: regular rate, rhythm, no murmur Abdomen: Present: Normal bowel sounds, soft, nondistended, no rebound tenderness , no hepatospenomegaly, no masses, tender Extremity: Present: normal range of motion, no pedal edema Skin Exam: Present: normal color, warm/dry, no cyanosis Neurologic: Present: alert, oriented x 3 Appearance: Present: appropriate appearance, appropriate insight, neat, no memory impairment Eye contact: Present: cooperative, good eye contact, normal speech Thoughts: Present: normal thought pattern Assessment/Plan Plan Narrative: Walk more. Probably home tomorrow. Follow labs. - Problems/Diagnosis (1) CAD (coronary artery disease) Problem: Chronic (2) CHF (congestive heart failure) Problem: Chronic Qualifiers: Congestive heart failure type: unspecified congestive heart failure type Congestive heart failure chronicity: chronic Qualified Code(s): I50.9 - Heart failure, unspecified (3) Diabetes Problem: Chronic Qualifiers: Diabetes mellitus type: type 2 (4) Anemia Problem: Acute Qualifiers: Anemia type: unspecified type Qualified Code(s): D64.9 - Anemia, unspecified (5) Cholecystitis Problem: Acute (6) Cholelithiasis Problem: Chronic (7) BLOSSOM (obstructive sleep apnea) Problem: Chronic
[2016-11-30] MEDS: ENOXAPARIN SODIUM 40 MG/0.4 ML SYRG SC SCH (17:21)
[2016-11-30] MEDS: ROSUVASTATIN CALCIUM 10 MG TABLET PO SCH (20:13)
[2016-12-01] MEDS: ACETAMINOPHEN 325 MG TABLET PO SCH ×2 (01:11→06:50)
[2016-12-01] MEDS: CEFOXITIN SODIUM 2 GM in DEXTROSE 5 % IN WATER 100 ML IV SCH ×4 (01:12→06:51)
[2016-12-01 06:05] LABS: Hematocrit 37.3 % (42.0-52.0); Hemoglobin 11.9 gm/dL (13.5-18.0); Mean Cell Volume 92.1 fl (78-100); Mean Corpuscular Hemoglobin 29.4 pg (27-31); Mean Corpuscular Hgb Conc 31.9 g/dl (32-36); Mean Platelet Volume 8.7 fl (6.0-9.5); Neutrophil # 8.5 K/mm3 (1.3-6.0); Neutrophil % 79.7 % (42-75.0); Platelet Count 247 K/mm3 (150-450); Red Blood Count 4.05 M/mm3 (4.7-6.0); Red Cell Distribution Width 13.2 % (11.5-14.0); White Blood Count 10.6 K/mm3 (4.0-10.5)
[2016-12-01 06:20] LABS: Albumin * 1.8 gm/dl (3.4-5.0); Anion Gap 10.5 mmol/L (6.8-13.8); BUN/Creatinine Ratio 11.3 (9.0-21.6); Bilirubin Direct 0.3 mg/dL (0.0-0.3); Bilirubin, Total 0.9 mg/dL (0.0-1.1); Bilirubin,Indirect 0.6 mg/dL (0.1-0.7); Calcium * 7.9 mg/dL (7.9-10.9); Carbon Dioxide 29.1 mmol/L (24-32.6); Potassium 4.6 mmol/L (3.4-4.6); Total Protein 5.9 gm/dL (6.2-8.2)
[2016-12-01] MEDS: PANTOPRAZOLE SODIUM 20 MG TABLET.DR PO SCH (06:50)
[2016-12-01 06:53] VITALS: BP 145/84
[2016-12-01] MEDS: INSULIN LISPRO 100 UNITS/ML VIAL SC SCH (07:33)
[2016-12-01] MEDS: INSULIN GLARGINE,HUM.REC.ANLOG 100 UNITS/ML VIAL SC SCH (07:34)
--- NOTE | 2016-12-01 08:09 | DS ---
(1) CAD (coronary artery disease) Problem: Chronic (2) CHF (congestive heart failure) Problem: Chronic Qualifiers: Congestive heart failure type: unspecified congestive heart failure type Congestive heart failure chronicity: chronic Qualified Code(s): I50.9 - Heart failure, unspecified (3) Diabetes Problem: Chronic Qualifiers: Diabetes mellitus type: type 2 (4) Anemia Problem: Acute Qualifiers: Anemia type: unspecified type Qualified Code(s): D64.9 - Anemia, unspecified (5) Cholecystitis Problem: Resolved (6) Cholelithiasis Problem: Resolved (7) BLOSSOM (obstructive sleep apnea) Problem: Chronic Description of Stay: Initially started on IV antibiotics and made NPO. Surgery was consulted. Cholecystectomy was accomplished without incident. Steady recovery since. Has had two small bowel movements. Is eating. Is passing gas. Labs are improving. Procedures Performed: see notes below - Laparoscopic cholecystectomy Discharge Disposition: Home self care Disposition: Home self-care Condition: Good Discharge Activity: Activity as tolerated - no lifting Discharge Diet: Consistent carbs Consultation Done:: Dr Bernabe, general surgery Problem Oriented Discharge Instructions to Patient/Family: Cholelithiasis, Cholecystitis, [id number] Additional Patient Instructions (free text): Friday morning call Dr. Bernabe's office for appt with him on Friday. Change the dressings twice daily. Prescriptions (Any new or edited meds): Insulin Lispro [Humalog] 0 units SC ACHSINS #1 vial Complete Home Medications List: Complete Home Medication List: Aspirin 325 mg PO DAILY 11/20/16 Atorvastatin Calcium 40 mg PO DAILY 11/20/16 Brinzolamide/Brimonidine Tart [Simbrinza 1%-0.2% Eye Drops] 1 drop OP DAILY Losartan Potassium [Cozaar] 50 mg PO DAILY 11/20/16 Metoprolol Tartrate [Lopressor] 1.5 tab PO BID 11/20/16 Nitroglycerin 0.4 mg SL Q5MIN PRN 11/20/16 Omeprazole Magnesium [Prilosec Otc] 20 mg PO DAILY 11/20/16 Acetaminophen [Tylenol] 650 mg PO Q6H tablet 12/01/16 Insulin Glargine,Hum.rec.anlog [Lantus] 10 units SC Q12H vial 12/01/16 Insulin Lispro [Humalog] 0 units SC YOJANA #1 vial 12/01/16
[2016-12-01] MEDS: BRIMONIDINE TARTRATE 50 DROP BTL OP SCH (09:55)
[2016-12-01] MEDS: BRINZOLAMIDE 100 DROP BTL OP SCH (09:55)
[2016-12-01] MEDS: METOPROLOL TARTRATE 50 MG, METOPROLOL TARTRATE 25 MG PO SCH ×2 (09:56)
== END 2016-12-01 10:40 | disposition home or self-care (01) | DRG 419 ==
LOC: ER 03:13 → MS 07:33 → OBSVTOIN 12:57
PROVIDERS: ADMIT Allergy & Immunology; ATTEND Allergy & Immunology
PROC: 0FT44ZZ Resection of Gallbladder, Percutaneous Endoscopic Approach (ICD-10-PCS; principal; 2016-11-27 08:00)
DX: K80.12 Calculus of gallbladder with acute and chronic cholecystitis without obstruction (principal); E11.9 Type 2 diabetes mellitus without complications; E78.5 Hyperlipidemia, unspecified; I10 Essential (primary) hypertension; D64.9 Anemia, unspecified; I50.9 Heart failure, unspecified; I25.10 Atherosclerotic heart disease of native coronary artery without angina pectoris; Z95.5 Presence of coronary angioplasty implant and graft
CPT/HCPCS: 36415; 47562; 78226; 80048; 80053; 80076; 81001; 82140; 82150; 82247; 82248; 82272; 83605; 83690; 85007; 85025; 85610; 85652; 86140; 87040; 87081; 87400; 87430; 88304; 93005; 94660; 97161; 97165; 99284; A9537